=== PATIENT | male | born 1980 | race Two or more races ===

== ENCOUNTER → 2024-11-29 | Outpatient (BNVA) | payer MEDICAID, SELFPAY | END | disposition home or self-care (01) | PROVIDERS: PCP Nurse Practitioner Family; Referring Provider Nurse Practitioner Family; Visit Provider Nurse Practitioner Family | DX: Z71.2 Person consulting for explanation of examination or test findings (principal); E78.1 Pure hyperglyceridemia; R73.03 Prediabetes | CPT/HCPCS: 99213 ==

== ENCOUNTER → 2024-12-25 | Outpatient (BNVA) | payer MEDICAID, SELFPAY | END | disposition home or self-care (01) | PROVIDERS: PCP Nurse Practitioner Family; Referring Provider Nurse Practitioner Family; Visit Provider Nurse Practitioner Family | DX: Z00.01 Encounter for general adult medical examination with abnormal findings (principal); N52.9 Male erectile dysfunction, unspecified; E78.5 Hyperlipidemia, unspecified; R73.03 Prediabetes; R03.0 Elevated blood-pressure reading, without diagnosis of hypertension; Z71.85 Encounter for immunization safety counseling; Z11.3 Encounter for screening for infections with a predominantly sexual mode of transmission | CPT/HCPCS: 99215 ==

== ENCOUNTER → 2025-01-10 | Outpatient (BNVA) | payer MEDICAID, SELFPAY | END | disposition home or self-care (01) | PROVIDERS: PCP Nurse Practitioner Family; Referring Provider Nurse Practitioner Family; Visit Provider Nurse Practitioner Family | DX: Z71.2 Person consulting for explanation of examination or test findings (principal); M54.89 Other dorsalgia | CPT/HCPCS: 96372; 99213; J1885 ==

== ENCOUNTER → 2025-05-08 | Outpatient (BNVA) | payer MEDICAID, SELFPAY | END | disposition home or self-care (01) | PROVIDERS: PCP Nurse Practitioner Family; Referring Provider Nurse Practitioner Family; Visit Provider Nurse Practitioner Family | DX: Z71.2 Person consulting for explanation of examination or test findings (principal); R73.03 Prediabetes; E78.1 Pure hyperglyceridemia | CPT/HCPCS: 99213 ==